=== PATIENT | female | born 1995 | race African-American/Black ===

== ENCOUNTER 2020-01-19 05:58 | Emergency (ER) | payer MEDICAID, OTHER ==
[~2020-01-19] VITALS: Ht 157.5 cm; Wt 81.6 kg
[2020-01-19 07:32] VITALS: BP 118/75
== END 2020-01-19 08:21 | disposition home or self-care (01) ==
LOC: ER 05:58
DX: S19.89XA Other specified injuries of other specified part of neck, initial encounter (principal); Y04.2XXA Assault by strike against or bumped into by another person, initial encounter; Y93.89 Activity, other specified; Y92.89 Other specified places as the place of occurrence of the external cause; Y99.8 Other external cause status
CPT/HCPCS: 70490

== ENCOUNTER 2021-12-06 20:27 | Emergency (ER) | payer MEDICAID ==
[~2021-12-06] VITALS: Ht 157.5 cm; Wt 78.9 kg
[2021-12-06 20:29] VITALS: BP 120/78
[2021-12-06] MEDS ORDERED: IBUPROFEN 600 MG TAB PO ONE (20:45)
[2021-12-06] MEDS ORDERED: AMOX-277 PO (21:28)
[2021-12-06] MEDS ORDERED: ACET-1079 PO (21:28)
== END 2021-12-06 21:34 | disposition home or self-care (01) ==
LOC: ER 20:27
DX: L03.312 Cellulitis of back [any part except buttock and flank] (principal)